=== PATIENT | male | born 1975 ===

== ENCOUNTER 2019-12-01 10:08 | Emergency (ER) | payer SELFPAY ==
[2019-12-01] MEDS ORDERED: Al Hydrox/Mg Hydrox/Simet LIQ* 30 ML UDC PO ONE (11:10)
[2019-12-01] MEDS ORDERED: Ondansetron ODT TAB* 4 MG PO ONE (11:10)
--- NOTE | 2019-12-01 11:33 | UC ---
Abdominal Pain Male HPI - HPI Summary HPI Summary: 44-year-old male comes in with a chief complaint of abdominal pain. 3 days ago in the evening patient reports he had onset of nausea and vomiting. Reports that he vomited multiple times. Reports that he was vomiting so much once that he actually passed out for about 5 seconds. Patient had eaten a piece of pizza before and he was wondering if he was ill because of the pizza. Since then he' s been able to drink water but has not been able to eat any solid foods. also has felt like he has 2 have a bowel movement but he has not been able to have a bowel movement. Also reports decreased flatus. Tells me that about 6 months ago he had a similar episode and had a CT scan which he reports was normal. The only abdominal surgery has had was a hernia repair which was years ago. Pain is primarily periUmbilical. After the vomiting he also has some pain in the sternal area. Patient feels dehydrated. Has had chills no fevers measured. - History of Current Complaint Chief Complaint: UCAbdominalPain Stated Complaint: ABDOMINAL COMPLAINT Time Seen by Provider: 12/01/19 10:47 Pain Intensity: 7 - Allergies/Home Medications Allergies/Adverse Reactions: Allergies Allergy/AdvReac Type Severity Reaction Status Date / Time No Known Allergies Allergy Verified 12/01/19 10:23 Home Medications: Home Medications Omeprazole 20 mg PO BID #30 capsule. 12/01/19 [Rx] Ondansetron ODT TAB* [Zofran 4 MG Odt TAB*] 4 mg PO Q6H PRN #10 tab.odt [Rx] PMH/Surg Hx/FS Hx/Imm Hx Previously Healthy: Yes - Surgical History Surgical History: Yes Surgery Procedure, Year, and Place: hernia - Family History Known Family History: Positive: Non-Contributory - Social History Alcohol Use: Rare Substance Use Type: Marijuana Smoking Status (MU): Current Some Day Smoker Review of Systems All Other Systems Reviewed And Are Negative: Yes Constitutional: Positive: Other - see hpi Skin: Positive: Negative Eyes: Positive: Negative ENT: Positive: Negative Respiratory: Positive: Negative Cardiovascular: Positive: Negative Gastrointestinal: Positive: Abdominal Pain, Vomiting, Nausea, Other - see hpi Genitourinary: Positive: Negative Motor: Positive: Negative Neurovascular: Positive: Negative Musculoskeletal: Positive: Negative Neurological/Mental Status: Positive: Negative Psychological: Positive: Negative Is Patient Immunocompromised?: No Physical Exam Triage Information Reviewed: Yes Appearance: Well-Nourished, Pain Distress - mild Vital Signs: Initial Vital Signs Temp 99.2 F 12/01/19 10:16 Pulse 87 12/01/19 10:16 Resp 18 12/01/19 10:16 BP 154/96 12/01/19 10:16 Pulse Ox 99 12/01/19 10:16 Vital Signs Reviewed: Yes Eye Exam: Normal Eyes: Positive: Conjunctiva Clear Neck: Positive: Supple Respiratory: Positive: Lungs clear, Normal breath sounds, No respiratory distress Cardiovascular: Positive: RRR Abdomen Description: Positive: Other: - Negative heel strike negative obturator sign. Patient's mildly tender to palpation in the periumbilical area and the epigastrium. Bowel Sounds: Positive: Hypoactive Musculoskeletal: Positive: Strength Intact, ROM Intact Neurological: Positive: Alert, Muscle Tone Normal Psychological: Positive: Age Appropriate Behavior Skin Exam: Normal Abd Pain Male Course/Dx - Course Course Of Treatment: Manager Print: Mark Mario Daniel, ([id number]) Slip Maker: MOSES ( NICOLASAANCE) Report Date: 12/01/2019 11:41:00 Report Status: Final ====== Start of Report Content Patient Name: STEVEN SANCHEZ Medical Record#: [id number] Ordering Physician: Anish Jay MD Acct.#: [id number] : Age: 44 Sex: M Location: [facility] Exam Date: 12/01/19 1110 ADM Status: REG ER Order Information: ABDOMEN (COMPLETE) 2 VWS Accession Number: [id number] CPT: 15194 HISTORY: MID ABD PAIN,N/V,NO BMs/flatus x 2 days COMPARISONS: January 06, 2009 VIEWS: Frontal views of the abdomen. FINDINGS: BOWEL : There is a nonspecific bowel gas pattern, with nondilated small bowel gas noted. There is a moderate amount of stool within the distal colon. CALCULI: There are no abnormal calculi. BONES AND SOFT TISSUES: There are no osseous abnormalities. OTHER FINDINGS: The lung bases are clear. There is no subphrenic gas. IMPRESSION: NONSPECIFIC BOWEL GAS PATTERN. <Electronically signed by Mark Mario MD in OV> 12/01/19 1138 Dictated By: Mark Mario MD Dictated Date/Time: 1136 Transcribed Date/Time: 12/01/191135 Copy to: CC:No Primary Care Phys ,NOPCP ; Anish Jay MD Imaging - [facility] - [facility] [address] [address] ph ([phone]) ph ([phone]) ph ([phone]) ==== End of Report Content I discussed the abdominal x-ray with the patient. Patient was given some IV fluids for his dehydration. Also given Maalox and Zofran. Patient reports that he had a similar episode about 6 months ago which resolved on its own. Patient had no right lower quadrant abdominal tenderness. No signs of obstruction on the x-rays. We discussed evaluation in the emergency department as they have real-time labs and availability to to CT scan wound IV and by mouth contrast. Patient preferred to not go to the emergency room preferred evaluation and care here. My plan is to treat with an antacid medicine and also Zofran. Patient should drink plenty of fluids. I discussed with the patient that if he is does not improve or feeling worse he needs to go the emergency department for further evaluation and care. - Differential Dx/Clinical Impression Provider Diagnosis: Abdominal pain, Nausea & vomiting Discharge ED - Sign-Out/Discharge Documenting (check all that apply): Patient Departure All imaging exams completed and their final reports reviewed: Yes - Discharge Plan Condition: Stable Disposition: HOME Prescriptions: Omeprazole 20 mg PO BID #30 capsule. Ondansetron ODT TAB* [Zofran 4 MG Odt TAB*] 4 mg PO Q6H PRN #10 tab.odt PRN Reason: Nausea/Vomiting Patient Education Materials: Acute Abdominal Pain (ED), Acute Nausea and Vomiting (ED) Referrals: [facility] [Outside] Care [facility] [Outside] Additional Instructions: FOLLOW UP WITH [facility] IF NOT COMPLETELY IMPROVED. GO TO THE EMERGENCY DEPARTMENT IF NOT IMPROVED OR WORSE; PAIN, ESPECIALLY PAIN IN THE RIGHT LOWER ABDOMEN, FEVER, DEHYDRATION, YOU FEEL ILL OR ANY QUESTIONS OR CONCERNS. - Billing Disposition and Condition Condition: STABLE Disposition: Home
[2019-12-01] MEDS ORDERED: NS 0.9% 1000 ML** 1,000 ML IV ONE (12:18)
== END 2019-12-01 14:17 | disposition home or self-care (01) ==
LOC: UCEAST 10:08
DX: R10.9 Unspecified abdominal pain (principal); R11.2 Nausea with vomiting, unspecified; F17.200 Nicotine dependence, unspecified, uncomplicated
CPT/HCPCS: 74019; 81003; 96360; 99212; A9270-GY; G0463